=== PATIENT | male | born 2000 | race Caucasian/White ===

== ENCOUNTER 2022-04-10 12:46 | Outpatient (CLI) | payer OTHER ==
--- NOTE | 2022-04-10 17:23 | MRI Report ---
PROCEDURE: KNEE WO - LT INDICATIONS: LEFT KNEE PAIN TECHNIQUE: Noncontrast sagittal PD fast spin echo and T2 fast spin echo with fat saturation, sagittal 3-D gradie nt sequence with fat saturation; coronal T1 spin echo and PD fast spin echo with fat saturation, and axial PD fast spin echo with fat saturation through the knee. COMPARISON: None. FINDINGS: Image quality: Excellent. Menisci: The medial and lateral menisci demonstrate normal morphology and internal signal. The meni scal root ligaments appear intact. Cruciate ligaments: The anterior and posterior cruciate ligaments appear intact. Medial structures: The medial collateral ligament appears intact. The posterior oblique ligament, s emimembranosus tendon insertions, and oblique popliteal ligament, and meniscocapsular junction appear intact. Visualized portions of the pes anserinus tendons appear normal. No abnormal bursal fluid. Lateral structures: The lateral collateral ligament, long and short heads of the biceps femoris tend on appear intact. The popliteus tendon appears normal; the popliteofibular ligament appears intact. Iliotibial band appears normal. Anterior structures: Distal quadriceps tendon is intact. Markedly thickened proximal to mid patella t endon at its inferior patella insertion is seen with significant intrasubstance T2 hyperintense signa l and significant edema within infrapatellar fat pad. Patellar alignment is normal. No femoral troch lear dysplasia or ventral trochlear prominence. Bones and cartilage: Marrow edema involving inferior portion of patella is seen at proximal patella t endon insertion site. No discrete fracture line is noted. No other area of abnormal marrow signal. Th e cartilage of the medial and lateral femorotibial compartments, as well as the patellofemoral compar tment, appears normal in thickness. Joint space: There is physiologic knee joint fluid. No Low's cyst. Normal appearing synovial pli are incidentally noted. IMPRESSION: 1. Moderate grade partial thickness tear involving proximal patella tendon at its inferior patella in sertion with avulsion injury involving lower pole of patella and marrow edema. No full-thickness tend on rupture. Quadriceps tendon is intact. 2. No other area of abnormal marrow signal. Articulating cartilages are intact. 3. No evidence of focal meniscal tear. 4. Cruciate ligaments are intact. Reviewed by: Octavio Josue MD on 04/10/2022 5:22 PM PDT Approved by: Octavio Josue MD on 04/10/2022 5:22 PM PDT Station ID: [id number]
== END 2022-04-10 12:47 | disposition home or self-care (01) ==
LOC: DI 12:46
PROVIDERS: ATTEND Student in an Organized Health Care Education/Training Program
DX: S76.112A Strain of left quadriceps muscle, fascia and tendon, initial encounter (principal)

== ENCOUNTER 2022-10-20 12:32 | Emergency (ER) | payer OTHER ==
[2022-10-20] MEDS ORDERED: HYDROmorphone 1 MG/ML CARPUJECT IM STA (13:27)
[2022-10-20] MEDS ORDERED: KETOROLAC 60 MG/2 ML VIAL IM STA (13:27)
--- NOTE | 2022-10-20 13:27 | ED Physician Documentation ---
History of Present Illness - Stated complaint Stated Complaint: LT KNEE PX - Chief complaint Chief Complaint: Ext Problem - History obtained from History obtained from: Patient (He had arthroscopy with tendon repair of the patellar tendon by Dr. Villaseñor in [place] yesterday. His pain became out of control last night despite oxycodone and Tylenol and was referred here for pain management.) PD PAST MEDICAL HISTORY - Present Medications Home Medications: Ambulatory Orders Medication Instructions Recorded Confirmed Ibuprofen [Motrin] 800 mg PO Q8H PRN #30 tablet 10/20/22 oxyCODONE [Roxicodone] 1 - 4 tab PO Q4-6H PRN #25 tablet 10/20/22 - Allergies Allergies/Adverse Reactions: Allergies Allergy/AdvReac Type Severity Reaction Status Date / Time No Known Drug Allergies Allergy Verified 10/20/22 12:51 PD ED PE NORMAL - Vitals Vital signs reviewed: Yes - General General: Alert and oriented X 3, No acute distress - Extremities Extremities: Other (The left knee joint is clean dry with small incisions intact and no redness or warmth. It was not ranged.) - Neuro Neuro: Alert and oriented X 3, Normal speech Results - Vitals Vitals: Vital Signs - 24 hr 10/20/22 12:48 Temperature 37 C Heart Rate 65 Respiratory 16 Rate Blood Pressure 153/95 H O2 Saturation 97 Oxygen O2 Source Room air PD Medical Decision Making - ED course ED course: 22-year-old gentleman with uncontrolled postoperative pain. He was given 1 mg of Dilaudid and 60 mg of IM Toradol here with improvement. Departure - Departure Disposition: 01 Home, Self Care Clinical Impression: Postoperative pain of left knee Condition: Good Instructions: ED Post Op Pain Prescriptions: Ibuprofen [Motrin] 800 mg PO Q8H PRN #30 tablet PRN Reason: PAIN &/OR FEVER oxyCODONE [Roxicodone] 1 - 4 tab PO Q4-6H PRN #25 tablet PRN Reason: Pain Comments: I sent your prescriptions electronically to [email or web address] in [place] In addition to the prescribed anti-inflammatory and refilled oxycodone you can and should take 2 extra strength Tylenol every 6 hours for pain. When you are able make sure your surgeon knows what troubles you are having. Return if worse. I am prescribing a short course of narcotic pain medication for you. These are potentially dangerous and addictive medications that should be used carefully. These medications may constipate you. Take an rxss-kli-gqodvvt stool softener (docusate) twice daily with plenty of water while taking these medications. If you go 24 hours without a bowel movement, take fger-bep-iqsiitm miralax, per package instructions. Do not drink or drive while taking these medications. If you received narcotic or sedating medications while [facility] the [facility], do not drive for 24 hours. Store this medication in a safe, secure place and out of reach of children. It is a violation of federal law to give or sell this medication to another person or to use in a manner other than prescribed. The ED will not refill narcotic prescriptions, including prescriptions lost or stolen. To dispose of unwanted medications: 1. [facility] [address] in [place] has a medication drop box. They accept prescription medications (in pill form) Sunday through Sunday 9:00 a.m. to 5:00 p.m. 2. [facility], [place] [employer] accepts prescription medications (in pill form only) for disposal year round. Call for more information. 3. Contact the [facility] for the next [facility] sponsored prescription drug collection event. , [phone], or [phone]; Note that many narcotic pain relievers also contain Tylenol/acetaminophen. Please ensure that your total dose of acetaminophen from all sources does not exceed 3 g (3000 mg) per day.
[2022-10-20 14:36] VITALS: BP 150/80
== END 2022-10-20 14:35 | disposition home or self-care (01) ==
LOC: ED 12:32
DX: G89.18 Other acute postprocedural pain (principal); M25.562 Pain in left knee
CPT/HCPCS: 96372; 99283; J1170